=== PATIENT | male | born 1995 | race Caucasian/White ===

== ENCOUNTER 2018-10-10 05:42 | Emergency (ER) | payer MEDICAID ==
[~2018-10-10] VITALS: Ht 167.6 cm; Wt 84.5 kg
[2018-10-10 05:51] VITALS: Ht 167.6 cm; Wt 84.5 kg
[2018-10-10] MEDS ORDERED: SOD CHLORIDE 0.9% 1,000 ML IV STA (06:50)
[2018-10-10] MEDS ORDERED: LORAZEPAM 2 MG INJ IV ONE (07:00)
[2018-10-10] MEDS ORDERED: LEVETIRACETAM 1000 MG (PMX) 100 ML IVPB ONE (07:00)
--- NOTE | 2018-10-10 07:42 | ERD ---
ER Documentation Chief Complaint Chief Complaint states has not been taking meds x 3 days, c/o being shakey/tingly HPI This is a 22-year-old man with a history of polysubstance drug abuse including opioids and benzodiazepines, seizure disorder, alcohol abuse presenting with alcohol withdrawal and requesting prescription refills. He also has a history of psychiatric illness but denies suicidal homicidal ideation. He denies recent seizure activity but states he wants his Keppra refilled so he does not experience any seizures. He denies fevers or chills, no cough, no headache or blurry vision, no trauma, no vomiting or diarrhea. ROS All systems reviewed and are negative except as per history of present illness. Medications Home Meds Active Scripts Levetiracetam* (Keppra*) 750 Mg Tablet, 750 MG PO BID, #60 TAB Prov:LESLY CARTER MD 10/10/18 Reported Medications Clonidine Hcl* (Clonidine Hcl*) 0.2 Mg Tablet, 0.2 MG PO Q8, TAB 10/10/18 Hydroxyzine Pamoate* (Vistaril*) 50 Mg Cap, 50 MG PO Q8, CAP 10/10/18 Alprazolam* (Alprazolam*) 1 Mg Tablet, 1 MG PO DAILY PRN for ANXIETY, TAB 10/10/18 Levetiracetam* (Keppra XR*) 750 Mg Tab.sr.24h, 750 MG PO DAILY, TAB 10/10/18 Quetiapine Fumarate* (Seroquel*) 200 Mg Tablet, 200 MG PO HS, #30 TAB 10/10/18 Quetiapine Fumarate* (Seroquel*) 50 Mg Tablet, 50 MG PO BID, TAB 10/10/18 Gabapentin* (Gabapentin*) 300 Mg Capsule, 600 MG PO TID, #180 CAP 10/10/18 Allergies Allergies: Coded Allergies: No Known Drug Allergies (Verified Allergy, Unknown, 10/10/18) FmHx Family History: No diabetes Physical Exam Vitals Vital Signs Date Temp Pulse Resp B/P (MAP) Pulse Ox O2 O2 Flow FiO2 Time Delivery Rate 10/10/18 69 18 146/90 98 Room Air 08:55 (108) 10/10/18 98.6 109 18 161/107 97 05:51 (125) Physical Exam GENERAL: Well-developed, well-nourished, appears agitated, afebrile HEENT: Moist mucous membranes, pink conjunctiva, no cervical spine tenderness or step-off deformities, no goiter, no jaundice or icterus, NEURO: Alert and oriented 3, mild hand tremors, cranial nerves II through XII intact bilaterally, pupils equal round reactive to light, no focal deficits or facial asymmetry CARDIAC: Tachycardic and regular no murmurs rubs or gallops LUNGS: Clear bilaterally no wheezing crackles or stridor SKIN: Warm and dry to touch, no abrasions, contusions, or hematomas, no lacerations, no ecchymosis, no target lesions, and without ulcers EXTREMITIES: No clubbing cyanosis or edema, calves are bilaterally symmetrical, no Homans sign, no popliteal cord sign. Distal pulses equal and bilateral PSYCH: Agitated, anxious Result Diagram: 10/10/18 0710 10/10/18 0710 Results 24 hrs Laboratory Tests Test 10/10/18 07:10 White Blood Count 10.9 10^3/ul Red Blood Count 4.94 10^6/ul Hemoglobin 13.9 g/dl Hematocrit 40.6 % Mean Corpuscular Volume 82.2 fl Mean Corpuscular Hemoglobin 28.1 pg Mean Corpuscular Hemoglobin Concent 34.2 g/dl Red Cell Distribution Width 12.6 % Platelet Count 330 10^3/UL Mean Platelet Volume 9.5 fl Immature Granulocytes % 0.700 % Neutrophils % 66.5 % Lymphocytes % 26.1 % Monocytes % 6.2 % Eosinophils % 0.1 % Basophils % 0.4 % Nucleated Red Blood Cells % 0.0 /100WBC Immature Granulocytes # 0.080 10^3/ul Neutrophils # 7.3 10^3/ul Lymphocytes # 2.9 10^3/ul Monocytes # 0.7 10^3/ul Eosinophils # 0.0 10^3/ul Basophils # 0.0 10^3/ul Nucleated Red Blood Cells # 0.0 10^3/ul Sodium Level 143 mmol/L Potassium Level 4.9 mmol/L Chloride Level 102 mmol/L Carbon Dioxide Level 30 mmol/L Anion Gap 11 Blood Urea Nitrogen 8 mg/dl Creatinine 0.67 mg/dl Est Glomerular Filtrat Rate mL/min > 60 mL/min Glucose Level 96 mg/dl Calcium Level 10.6 mg/dl Current Medications Medications Dose Sig/Sarina Start Time Status Last (Trade) Ordered Route PRN Stop Time Admin Dose Reason Admin Lorazepam 1 mg ONCE ONCE 10/10/18 DC 10/10/18 (Ativan) IV 07:00 07:16 10/10/18 07:01 100 ml @ ONCE ONCE 10/10/18 DC 10/10/18 Levetiracetam 400 mls/hr IVPB 07:00 07:17 10/10/18 07:14 Sodium 1,000 ml @ Q1H STAT 10/10/18 DC 10/10/18 Chloride 1,000 mls/hr IV 06:50 07:17 10/10/18 07:49 Procedures/MDM IV line was established patient was placed on cafeteria monitor rhythm strip revealed a sinus tachycardia at 120 bpm with upright P and T waves. Patient was afebrile I administered 1 L normal saline IV, Keppra 1 g IV, lorazepam 1 g IV. CBC and electrolytes are normal Patient symptoms resolved, tachycardia resolved and is asymptomatic at this time. Differential diagnoses considered, included but not limited to acute coronary syndrome, pulmonary embolism, aortic dissection, abdominal aortic aneurysm, sep sis, stroke, meningitis, encephalitis, pneumonia, appendicitis, cholecystitis, bowel obstruction, pyelonephritis, nephrolithiasis, cystitis, as well as metabolic, hematologic, and electrolyte abnormalities. As well as abscess, cellulitis, fractures, and dislocations. Patient feels much better at this time, and vital signs are normal, symptoms have improved. I did give strict instructions to return to the ED if symptoms continue or worsen, patient will otherwise follow-up with primary care physi jeimy. Patient understood instructions and agreed to plan. Disclaimer: Inadvertent spelling and grammatical errors are likely due to EHR/dictation software use and do not reflect on the overall quality of patient care. Also, please note that the electronic time recorded on this note does not necessarily reflect the actual time of the patient encounter. Departure Diagnosis: Primary Impression: Alcohol withdrawal Complication of substance-induced condition: uncomplicated Qualified Codes: F10.230 - Alcohol dependence with withdrawal, uncomplicated Additional Impressions: Anxiety Medication refill Seizure disorder Condition: LESLY Edmondson MD Oct 10, 2018 07:42
[2018-10-10] MEDS ORDERED: GABA300C16 PO (08:30)
[2018-10-10] MEDS ORDERED: QUET200T PO (08:31)
[2018-10-10] MEDS ORDERED: QUET50TA PO (08:31)
[2018-10-10] MEDS ORDERED: LEVE750T32 PO (08:31)
[2018-10-10] MEDS ORDERED: HYDR50CA PO (08:32)
[2018-10-10] MEDS ORDERED: ALPR1TAB7 PO (08:32)
[2018-10-10] MEDS ORDERED: CLON0.2T5 PO (08:32)
[2018-10-10] MEDS ORDERED: LEVE750T70 PO (09:02)
[2018-10-10 10:35] VITALS: BP 138/72; PULSE 70; RESP 18
== END 2018-10-10 10:45 | disposition home or self-care (01) ==
LOC: E/R 05:42
DX: F10.230 Alcohol dependence with withdrawal, uncomplicated (principal); F41.9 Anxiety disorder, unspecified; G40.909 Epilepsy, unspecified, not intractable, without status epilepticus; R40.2142 Coma scale, eyes open, spontaneous, at arrival to emergency department; R40.2252 Coma scale, best verbal response, oriented, at arrival to emergency department; R40.2362 Coma scale, best motor response, obeys commands, at arrival to emergency department; Z76.0 Encounter for issue of repeat prescription
CPT/HCPCS: 36415; 80048; 85025; 96365; 96375; J1953; J2060; J7030; Z7502

== ENCOUNTER 2019-05-20 20:05 | Inpatient (IN) | payer MEDICAID, OTHER ==
[~2019-05-20] VITALS: Ht 167.6 cm; Wt 89.3 kg
[~2019-05-20 20:05] MED LIST: ALPR1TAB7 PO; CEPH-443 PO; CLON0.2T5 PO; GABA300C16 PO; HYDR50CA PO; LEVE-5 PO; LEVE750T32 PO; LEVE750T70 PO; QUET200T PO; QUET50TA PO; SULF1TAB31 PO
[2019-05-20] MEDS ORDERED: DIAZEPAM 10 MG/2 ML SYG IV ONE (22:30)
[2019-05-20] MEDS ORDERED: DIAZEPAM 10 MG/2 ML SYG IM ONE (23:00)
[2019-05-21] MEDS ORDERED: ACETAMINOPHEN 325 MG TAB PO PRN ×2 (00:30→04:00)
[2019-05-21] MEDS ORDERED: ONDANSETRON 4 MG INJ IV PRN ×2 (00:30→04:00)
[2019-05-21 02:45] VITALS: BP 110/65; PULSE 82; RESP 18; Ht 167.6 cm; Wt 89.3 kg
[2019-05-21 03:36] VITALS: BP 110/62; PULSE 73; RESP 18
[2019-05-21] MEDS ORDERED: LORAZEPAM 2 MG INJ IV PRN (04:00)
[2019-05-21] MEDS ORDERED: ALBUTEROL/IPRATROPIUM (NEB) 3 ML AMP HHN PRN (04:00)
[2019-05-21] MEDS ORDERED: NACL 0.9% 3 ML SYG IV SCH (04:00)
[2019-05-21] MEDS: hydrOXYzine PAMOATE 25 MG CAP PO SCH ×3 (06:27→21:21)
[2019-05-21 07:51] VITALS: BP 108/66; PULSE 79; RESP 19
[2019-05-21] MEDS ORDERED: LEVETIRACETAM 750 MG TAB PO SCH (09:00)
[2019-05-21] MEDS ORDERED: POTASSIUM CHLORIDE (SR) 20 MEQ TAB PO STA (09:11)
[2019-05-21] MEDS ORDERED: DIAZEPAM 10 MG/2 ML SYG IV ONE (09:30)
[2019-05-21] MEDS ORDERED: VANCOMYCIN IV PER PHARMACY XX SCH (09:30)
[2019-05-21] MEDS: GABAPENTIN 300 MG CAP PO SCH ×3 (09:30→20:35)
[2019-05-21] MEDS: QUETIAPINE 25 MG TAB PO SCH ×2 (09:30→20:35)
[2019-05-21] MEDS ORDERED: VANCOMYCIN HCL 1.75 GM in SOD CHLORIDE 0.9% 500 ML IVPB SCH (11:30)
[2019-05-21 11:55] VITALS: BP 109/67; PULSE 70; RESP 19
[2019-05-21] MEDS: ALPRAZOLAM 1 MG TAB PO PRN (11:58)
[2019-05-21 15:34] VITALS: BP 107/63; PULSE 87; RESP 18
[2019-05-21] MEDS: METHADONE 10 MG TAB PO SCH ×2 (15:57→21:21)
[2019-05-21] MEDS ORDERED: VANCOMYCIN 1 GM 250 ML IVPB SCH (18:30)
[2019-05-21 20:00] VITALS: BP 113/68; PULSE 83; RESP 19
[2019-05-21] MEDS: VANCOMYCIN 1 GM 250 ML IVPB SCH (20:33)
[2019-05-21] MEDS: LEVETIRACETAM 750 MG TAB PO SCH (20:34)
[2019-05-22] VITALS (7 sets, daily range): BP systolic 99–142; BP diastolic 56–97; PULSE 65–82; RESP 16–20
[2019-05-22] MEDS: VANCOMYCIN 1 GM 250 ML IVPB SCH ×3 (04:12→21:28)
[2019-05-22] MEDS: METHADONE 10 MG TAB PO SCH (05:01)
[2019-05-22] MEDS: hydrOXYzine PAMOATE 25 MG CAP PO SCH ×3 (05:01→21:25)
[2019-05-22] MEDS: QUETIAPINE 25 MG TAB PO SCH ×2 (08:40→21:27)
[2019-05-22] MEDS: GABAPENTIN 300 MG CAP PO SCH ×3 (08:40→21:27)
[2019-05-22] MEDS: LEVETIRACETAM 750 MG TAB PO SCH ×2 (08:40→21:30)
[2019-05-22] MEDS: ALPRAZOLAM 1 MG TAB PO PRN (08:43)
[2019-05-22] MEDS ORDERED: METHADONE 10 MG TAB PO ONE ×2 (14:00→22:00)
[2019-05-22] MEDS: clonAZEPAM 0.5 MG TAB PO SCH (21:26)
[2019-05-23 03:33] VITALS: BP 101/67; PULSE 63; RESP 19
[2019-05-23] MEDS: VANCOMYCIN 1 GM 250 ML IVPB SCH ×2 (05:43→11:57)
[2019-05-23] MEDS: hydrOXYzine PAMOATE 25 MG CAP PO SCH ×2 (05:43→13:15)
[2019-05-23] MEDS ORDERED: KETOROLAC 30 MG INJ IV PRN (07:00)
[2019-05-23 07:18] VITALS: BP 124/84; PULSE 62; RESP 16
[2019-05-23] MEDS: GABAPENTIN 300 MG CAP PO SCH ×2 (08:37→12:59)
[2019-05-23] MEDS: LEVETIRACETAM 750 MG TAB PO SCH (08:37)
[2019-05-23] MEDS: clonAZEPAM 0.5 MG TAB PO SCH (08:37)
[2019-05-23] MEDS: QUETIAPINE 25 MG TAB PO SCH (08:37)
[2019-05-23] MEDS ORDERED: METHADONE 10 MG TAB PO SCH (09:00)
[2019-05-23 11:41] VITALS: BP 98/61; PULSE 62; RESP 16
[2019-05-23 15:27] VITALS: BP 112/70; PULSE 74; RESP 16
== END 2019-05-23 17:15 | disposition left against medical advice (07) | DRG 101 ==
LOC: E/R 20:05 → TEL 05-21 00:21
PROVIDERS: ADMIT Internal Medicine; ATTEND Family Medicine
DX: G40.509 Epileptic seizures related to external causes, not intractable, without status epilepticus (principal); F19.239 Other psychoactive substance dependence with withdrawal, unspecified; L03.116 Cellulitis of left lower limb; L03.115 Cellulitis of right lower limb; F15.20 Other stimulant dependence, uncomplicated; F11.20 Opioid dependence, uncomplicated; G62.0 Drug-induced polyneuropathy; T42.4X5A Adverse effect of benzodiazepines, initial encounter; B18.2 Chronic viral hepatitis C; F41.9 Anxiety disorder, unspecified; F17.200 Nicotine dependence, unspecified, uncomplicated; I73.9 Peripheral vascular disease, unspecified; Y92.019 Unspecified place in single-family (private) house as the place of occurrence of the external cause; Z59.0 Homelessness
CPT/HCPCS: 36415; 73610; 80048; 80053; 80061; 80202; 80307; 83036; 83735; 84443; 85025; 87081; 95819; 96372; 96374; J3360; J3370; J7040